=== PATIENT | female | born 1980 | race Two or more races ===

== ENCOUNTER → 2024-08-07 | Outpatient (CLI) | payer MEDICAID, SELFPAY ==
--- NOTE | 2024-08-07 13:30 | XR_ITS ---
Examination: Ultrasound soft tissue neck TECHNIQUE: Multiple high resolution grayscale sonographic images soft tissue neck INDICATIONS: Palpable lump right neck note is beginning 15 months ago, multiple submental lymph nodes, the largest 10 mm on ultrasound February 07, 2024 FINDINGS: Multiple right neck lymph nodes, the largest laterally 2.3 x 0.8 x 1.4 cm IMPRESSION: Multiple enlarged soft tissue right neck lymph nodes, recommend correlation with CT soft tissue neck post intravenous contrast
== END | disposition home or self-care (01) ==
LOC: CDIM 13:26
PROVIDERS: Referring Provider Nurse Practitioner Primary Care; Visit Provider Nurse Practitioner Primary Care
DX: R59.0 Localized enlarged lymph nodes (principal)
CPT/HCPCS: 76536

== ENCOUNTER 2024-09-14 03:04 | Emergency (ER) | payer MEDICAID, SELFPAY ==
[2024-09-14 03:05] VITALS: BMI 24.8
[2024-09-14 03:16] VITALS: BP 104/70; PULSE 103; RESP 16; TEMP 37.2; O2SAT 99
--- NOTE | 2024-09-14 03:19 | EKG_ITS ---
[facility] Test Date: 2024-09-14 Pat Name: CRISTIN JARA Department: Room: - Gender: Female Creative Recruiter: : 1980 Requested By: Silvano Lin Order Number: [id number] Reading MD: Silvano Lin Measurements Intervals [place] Rate: 80 P: 61 MI: 136 QRS: 39 QRSD: 83 T: 38 QT: 369 QTc: 426 Interpretive Statements SINUS RHYTHM No previous ECG available for comparison /store/S0/[id number].pdf
--- NOTE | 2024-09-14 03:19 | PD.EDRME ---
Rapid Medical Screening Exam RME Arrival date/time: 09/14/24 03:04 43 year old female present to Ed for c/o abd pain I have greeted and performed a focused initial assessment of this patient. A comprehensive ED assessment and evaluation of the patient, analysis of all test results, and completion of the medical decision making process will be conducted by additional ED providers. Chief Complaint: Abdominal Pain Time Seen by Provider: 09/14/24 03:14 Vital signs: Vital Signs Temperature 98.9 F 09/14/24 03:16 Pulse Rate 103 H 09/14/24 03:16 Respiratory Rate 16 09/14/24 03:16 Blood Pressure 104/70 09/14/24 03:16 Pulse Oximetry (%) 99 09/14/24 03:16 Oxygen Delivery Method Room Air 09/14/24 03:16
[2024-09-14] MEDS: MG HYD/AL HYD/SIME (Maalox Reg) SUSP 30 ML UDC PO (03:37)
[2024-09-14] MEDS: ONDANSETRON ODT 4 MG TABRAP PO (03:37)
[2024-09-14 03:40] LABS: Basophils % (Auto) 0 % (0-2.5); Eosinophils # (Auto) 0.1 Thou/mm3 (0.0-0.5); Eosinophils % (Auto) 1 % (0-10); Hemoglobin 12.6 g/dL (12.0-16.0); Immature Granulocytes % (Auto) 0 % (0-0); Immature Granulocytes Auto 0.01 Thou/mm3 (0.00-0.00); Lymphocytes # (Auto) 3.5 Thou/mm3 (1.0-4.8); Lymphocytes % (Auto) 38 % (10-50); Mean Corpuscular HGB Conc 34.1 g/dl (31.0-37.0); Mean Corpuscular Hemoglobin 29.8 pg (25.0-35.0); Mean Corpuscular Volume 88 fL (80-100); Monocytes # (Auto) 0.8 Thou/mm3 (0.0-0.8); Monocytes % (Auto) 8 % (0-12); Neutrophils # (Auto) 4.9 Thou/mm3 (1.8-7.7); Neutrophils % (Auto) 52 % (37-80); Nucleated Red Blood Cell % 0 /100 WBC (0); Platelet Count 344 Thou/mm3 (140-440); RDW Standard Deviation 40.3 fL (36.4-46.3); Red Blood Count 4.23 Miln/mm3 (4.00-5.20); White Blood Count 9.3 Thou/mm3 (3.6-11.0)
[2024-09-14 03:59] LABS: Alanine Aminotransferase 13 U/L (10-49); Albumin, Serum 4.8 gm/dL (3.5-5.0); Albumin/Globulin Ratio 1.7 (1.2-2.2); Alkaline Phosphatase 71 U/L (46-116); Anion Gap 9 (7-16); Aspartate Amino Transferase 14 U/L (0-34); BUN/Creatinine Ratio 17 Ratio (12-20); Bilirubin,Total 0.5 mg/dL (0.3-1.2); Blood Urea Nitrogen 12 mg/dL (9-23); Calcium 9.7 mg/dL (8.3-10.6); Calcium (Corrected) 9.7 mg/dL (8.5-10.1); Carbon Dioxide 27.4 mMol/L (20.0-31.0); Chloride 103 mMol/L (98-107); Creatinine (Component) 0.7 mg/dL (0.6-1.3); Estimated Creatinine Clearance 89.5 mL/min (>60); Globulin 2.9 gm/dL (2.3-3.5); Glucose 94 mg/dL (74-106); Lipase 38 U/L (12-53); Osmolality,Calculated 277 (275-295); Potassium 3.5 mMol/L (3.4-5.1); Sodium 139 mMol/L (136-145); Total Protein 7.7 gm/dL (5.7-8.2); Troponin I < 0.002 ng/mL (0.0-0.045); eGFR > 60 See Note
[2024-09-14 05:19] LABS: Collection Type, Urine Voided
[2024-09-14 05:26] LABS: Bilirubin,Urine Negative (Negative); Blood,Urine Negative (Negative); Clarity,Urine Clear (Clear/Hazy); Color,Urine Lt-Yellow (Lt Yel-Yel); Glucose, Urine Negative (Negative); Ketones,Urine Negative (Negative); Leukocyte Esterase,Urine Negative (Negative); Nitrite,Urine Negative (Negative); PH,Urine 6.5 (5.0-7.0); Protein,Urine Negative (Neg - Trace); RBC,Urine 9 /hpf (0-3); Specific Gravity,Urine 1.021 (1.001-1.035); Squamous Epithelial Cell,Urine < 1 /hpf (0-5); Urobilinogen,Urine Negative mg/dL (0.0-1.0); WBC,Urine 1 /hpf (0-5)
[2024-09-14 06:14] VITALS: BP 97/57; PULSE 72; RESP 16; TEMP 36.7; O2SAT 99
--- NOTE | 2024-09-14 07:07 | EDNOTE_ITS ---
<Statement entered by Marilu Gagnon MD - 09/14/24 07:15> As co-signing physician, I was present and available for consult prn. I concur with the plan and care as documented by the midlevel provider. ED Abdominal Pain RME/HPI General Chief Complaint: Abdominal Pain Stated complaint: abdominal pain Time seen by provider: 09/14/24 03:14 Arrival date/time: 09/14/24 03:04 43-year-old female with no known medical history presents to the emergency room with a chief complaint of generalized abdominal pain x 2 hours Source: patient Mode of arrival: ambulatory Limitations: no limitations RME / HPI RME / HPI narrative: 09/14/24 03:04 43 year old female present to Ed for c/o abd pain I have greeted and performed a focused initial assessment of this patient. A comprehensive ED assessment and evaluation of the patient, analysis of all test results, and completion of the medical decision making process will be conducted by additional ED providers. Related Data Home Medications ?Medication ?Instructions ?Recorded ?Confirmed Vitamin * 1 tab PO QDAY ##90 01/10/16 Previous Rx's ?Medication ?Instructions ?Recorded sumatriptan succinate 50 mg tablet 50 mg PO TID #14 tabs 01/09/18 (Imitrex) hydrocodone 5 mg-acetaminophen 325 1 tab PO Q6H PRN pain #10 tabs 07/31/ mg tablet ibuprofen 600 mg tablet 600 mg PO Q6H PRN fever or pain 07/31/22 #45 tabs hydrocodone 5 mg-acetaminophen 325 1 tab PO BID PRN pain #10 tabs 08/02/ mg tablet acetaminophen-caffeine 500 mg-65 1 tab PO Q6H PRN pain #30 tabs 04/11/ mg tablet (Excedrin Tension Headache) Allergies Allergy/AdvReac Type Severity Reaction Status Date / Time NKA* Allergy Uncoded 01/09/18 09:30 Review of Systems Review of Systems Systems Reviewed: All systems reviewed, normal except as documented Constitutional Constitutional: Reports system reviewed and no additional complaints, except as documented, Denies fatigue, Denies fever(s), Denies headache(s) and Denies weakness Eyes Eyes: Reports system reviewed and no additional complaints, except as documented, Denies blurry vision and Denies change in vision ENT Ears, Nose, Mouth, and Throat: Reports system reviewed and no additional complaints, except as documented, Denies otalgia, Denies headache(s), Denies nasal congestion, Denies throat swelling and Denies vertigo Cardiovascular Cardiovascular: Reports system reviewed and no additional complaints, except as documented, Denies chest pain, Denies dyspnea and Denies dyspnea on exertion Respiratory Respiratory: Reports system reviewed and no additional complaints, except as documented, Denies chest congestion, Denies cough, Denies dyspnea, Denies dyspnea on exertion and Denies wheezing Gastrointestinal Gastrointestinal: Reports abdominal pain and Reports nausea Genitourinary Genitourinary: Reports system reviewed and no additional complaints, except as documented Musculoskeletal Musculoskeletal: Reports system reviewed and no additional complaints, except as documented and Denies back pain Integumentary/Breasts Skin/Breast: Reports system reviewed and no additional complaints, except as documented and Denies wounds Neurologic Neurologic: Reports system reviewed and no additional complaints, except as documented, Denies confusion, Denies headache(s), Denies lack of coordination, Denies vertigo and Denies weakness Psychiatric Psychiatric: Reports system reviewed and no additional complaints, except as documented, Denies anxiety, Denies confusion, Denies depression, Denies paranoia, Denies suicidal ideation and Denies tactile hallucinations Endocrine Endocrine: Reports system reviewed and no additional complaints, except as documented and Denies fatigue Hematologic/Lymphatic Hematologic/Lymphatic: Reports system reviewed and no additional complaints, except as documented and Denies lymphadenopathy Allergic/Immunologic Allergic/Immunologic: Reports system reviewed and no additional complaints, except as documented, Denies throat swelling, Denies urticaria and Denies wheezing ED Exam General Limitations: Present no limitations General appearance: Present alert and in no apparent distress Head Head exam: Present atraumatic Eye Eye exam: Present normal appearance, PERRL and EOMI ENT ENT exam: Present normal exam, normal oropharynx and mucous membranes moist Neck Neck exam: Present normal inspection, full ROM and trachea midline Chest Chest inspection: Present normal inspection and symmetric chest wall rise Respiratory Respiratory exam: Present normal lung sounds bilaterally Cardiovascular Cardiovascular exam: Present regular rate, normal rhythm and normal heart sounds Abdominal Exam Abdominal exam: Present soft and normal bowel sounds; Absent distention, tenderness, guarding, rebound, rigidity, Lu's sign, Rovsing's sign or tenderness at McBurney's Point Extremities Exam Extremities exam: Present normal inspection and full ROM Back Exam Back exam: Present normal inspection and full ROM Neurological Exam Neurological exam: Present alert, oriented X3 and CN II-XII intact Psychiatric Psychiatric exam: Present normal affect and normal mood Skin Skin exam: Present warm, dry, intact and normal color Course Quality Measures none Orders Category Date Time Status EKG (ED ONLY) *Do not use* NOW Care 09/14/24 03:19 Completed EKG (ED Only) Stat Exams 09/14/24 03:19 Draft CBC Stat Lab 09/14/24 03:26 Completed CMP [Comprehensive Metabolic Panel] Stat Lab 09/14/24 03:26 Completed Lipase Stat Lab 09/14/24 03:26 Completed Troponin I Stat Lab 09/14/24 03:26 Completed UA [Urinalysis] Stat Lab 09/14/24 04:58 Completed Ondansetron Odt [Zofran Odt] Med 09/14/24 03:19 Discontinued 4 mg PO X1 ONE mg Hyd/Al Hyd/Jelly Susp [Maalox Susp] Med 09/14/24 03:19 Discontinued 30 ml PO X1 ONE Vital Signs Vital signs: Vital Signs Temperature 98.9 F 09/14/24 03:16 Pulse Rate 103 H 09/14/24 03:16 Respiratory Rate 16 09/14/24 03:16 Blood Pressure 104/70 09/14/24 03:16 Pulse Oximetry (%) 99 09/14/24 03:16 Oxygen Delivery Method Room Air 09/14/24 03:16 O2 saturation 99% within normal limits Abdominal Pain MDM MDM Narrative MDM Narrative:: 43-year-old female with no known medical history presents to the emergency room with a chief complaint of generalized abdominal pain x 2 hours clinically the patient appears nontoxic and in no apparent distress. During my reevaluation the patient is not complaining of any abdominal pain anymore states her nausea is completely gone. CBC and CMP were negative for any acute findings. There is no leukocytosis. Urinalysis was negative for any acute findings however there is some blood in the urine. Patient denies being on her menses and patient was educated to follow-up with her primary care provider regarding this issue. Patient was educated to follow-up with primary care provider and return to the emergency room for any evidence of worsening signs or symptoms Patient data External records reviewed:: [facility] previous records Clinical information provided by:: patient Social determinants that could affect healthcare access:: none Patient has the following chronic illnesses:: No chronic illness How is presenting disease/condition affected by chronic disease/condition?: no chronic disease Evaluation data The following diagnostics were reviewed and interpreted by me:: lab results and radiology exam(s) Lab and/or radiology exams considered but not ordered:: Labs and radiology exams considered and ordered Interpretation Summary: N/A Medications / Prescriptions Medications or Prescriptions considered but not ordered:: Medication given Medication administrations:: Medication Administration History Discontinued Medications Al Hydrox/Mg Hydrox/Simethicone (Mg Hyd/Al Hyd/Jelly (Maalox Reg) Susp 30 Ml Udc) 30 ml PO X1 ONE Stop: 09/14/24 03:20 Last Admin: 09/14/24 03:37 Dose: 30 ml Documented By: EF Ondansetron HCl (Ondansetron Odt 4 Mg Tabrap) 4 mg PO X1 ONE; Protocol Stop: 09/14/24 03:20 Last Admin: 09/14/24 03:37 Dose: 4 mg Documented By: EF Medication given Consultations Consultation(s) initiated? (list below): No Diagnosis Differential diagnosis abdominal pain: abdominal pain, acute appendicitis, const ipation and gastroenteritis Most likely diagnosis given after review of the tests above:: Gastroenteritis Admission Indicated Admission indicated?: not indicated Admission Request Was there a request for admission?: No Disposition Plan Disposition Plan: Discharge Discharge Attestation Discharge Attestation: The patient and all family members were given an opportunity to ask questions and understood the discharge instructions. Discharge instructions specifically effects, indications for sooner follow up or return to the emergency department, and the expected course of current diagnosis. Patient condition: Stable Discharge Plan Plan Patient Disposition: HOME (Self Care) Disposition Comment: Stable Prescriptions/Referrals Prescriptions/Med Rec: No Action Vitamin * 1 EACH tablet 1 tab PO QDAY Qty: 90 sumatriptan succinate [Imitrex] 50 mg tablet 50 mg PO TID Qty: 14 0RF Rx Instructions: until response; not to exceed 4 doses in a 24 hour period hydrocodone-acetaminophen 5-325 mg tablet 1 tab PO Q6H MDD 4 PRN (Reason: pain) Qty: 10 0RF ibuprofen 600 mg tablet 600 mg PO Q6H PRN (Reason: fever or pain) Qty: 45 0RF hydrocodone-acetaminophen 5-325 mg tablet 1 tab PO BID MDD 10 PRN (Reason: pain) Qty: 10 0RF Excedrin Tension Headache 500-65 mg tablet 1 tab PO Q6H PRN (Reason: pain) Qty: 30 0RF Referrals: Jessie Izaguirre (ARIACHL), AIRCRAFT SALES REPRESENTATIVE [Primary Care Provider] - In 1 week Problem List Clinical Impression: Gastroenteritis Patient/Caregiver Discharge Instructions Education Materials: ED Gastroenteritis, Noninfectious Additional Instructions: Jania un seguimiento con romero proveedor de atenci?n primaria en las pr?ximas 24 a 48 horas. Si muestra cualquier evidencia de signos o s?ntomas que empeoran, regrese a la annie de emergencias de inmediato. Print Language: [place] Stand Alone Forms: Em Award Info., Patient Portal Info Letter PA/AIRCRAFT SALES REPRESENTATIVE Supervising Physician PA/AIRCRAFT SALES REPRESENTATIVE Supervising Physician: Dr. GAGNON
== END 2024-09-14 07:12 | disposition home or self-care (01) ==
PROVIDERS: Physician Assistant; Emergency Provider Emergency Medicine; PCP Nurse Practitioner Primary Care
DX: K52.9 Noninfective gastroenteritis and colitis, unspecified (principal)
CPT/HCPCS: 36415; 80053; 81001; 83690; 84484; 85025; 93005; 99283; Q0162; A9270

== ENCOUNTER → 2024-11-23 | Outpatient (CLI) | payer MEDICAID, SELFPAY ==
--- NOTE | 2024-11-23 11:45 | XR_ITS ---
Examination: Diagnostic digital mammography, bilateral Computer aided detection 3-D breast Tomosynthesis, bilateral Date and time of exam: 11/23/2024, 11:32 AM Comparisons: February 24, 2024, April Indications:Follow-up probably benign asymmetries. Technique: Nonmagnified MLO, CC views of the breasts to been obtained, reconstructed from 3-D Tomosynthesis images. R2 computer aided detection program utilized for evaluation of suspicious masses and/or abnormal calcifications. 3-D Tomosynthesis images obtained. Findings: The breasts are heterogeneously dense, which may obscure small masses. No evidence of abnormal masses or suspicious calcifications. Previously described asymmetries persist but appears stable and benign. Impression: BI-RADS category 2: Benign findings Recommend 1 year follow-up mammogram
== END | disposition home or self-care (01) ==
LOC: CDIM 11:25
PROVIDERS: Referring Provider Nurse Practitioner Primary Care; Visit Provider Nurse Practitioner Primary Care
DX: R92.323 Mammographic fibroglandular density, bilateral breasts (principal)
CPT/HCPCS: 77062; 77066; G0279

== ENCOUNTER → 2024-12-05 | Outpatient (CLI) | payer MEDICAID, SELFPAY ==
--- NOTE | 2024-12-05 10:30 | XR_ITS ---
Examination: Abdomen sonogram, complete Date and time of exam: December 05, 2024 1046 hours INDICATIONS: History flank pain months, kidney stones, 9 mm midpole nonobstructing left renal calculus on abdomen sonogram March 14, 2024. Technique: Multiple real-time grayscale transabdominal sonographic images of the abdomen have been obtained. Findings: Normal gallbladder Normal common bile duct 0.3 cm Pancreatic head 2.7 cm Aorta not enlarged Liver 14.3 cm fatty infiltration irregular contour Normal hepatopedal portal venous flow Patent IVC Right kidney 10.8 cm cortex 1.5 cm Left kidney 10.9 cm cortex 1.9 cm Mild bilateral renal parenchymal scar formation 6 mm left renal calculus No hydronephrosis Spleen 8.0 cm IMPRESSION: Normal gallbladder Mild bilateral renal parenchymal scar formation 6 mm nonobstructing left renal calculus
== END | disposition home or self-care (01) ==
PROVIDERS: PCP Nurse Practitioner Primary Care; Referring Provider Nurse Practitioner Primary Care; Visit Provider Nurse Practitioner Primary Care
DX: N20.0 Calculus of kidney (principal); N28.89 Other specified disorders of kidney and ureter
CPT/HCPCS: 76700

== ENCOUNTER 2025-01-17 17:50 | Emergency (ER) | payer MEDICAID, SELFPAY ==
[2025-01-17 18:22] VITALS: BP 133/75; PULSE 89; RESP 18; TEMP 36.7; O2SAT 99; BMI 25.7
--- NOTE | 2025-01-17 18:31 | XR_ITS ---
Examination: Lumbar spine 3 views TECHNIQUE: AP lateral, lateral lower lumbar spine 3 views Examination time: January 17, 2025 1940 hours INDICATIONS: Low back pain radiating to left leg since yesterday FINDINGS: Satisfactory alignment lumbar vertebral bodies No lumbar fracture Mild disc narrowing L3-L4 No spondylolisthesis Impression: No lumbar fracture. Mild disc narrowing L3-L4
--- NOTE | 2025-01-17 18:31 | PD.EDBACK ---
ED Back Injury Pain RME/HPI General Chief Complaint: Back Pain/Injury Stated Complaint: RIGHT BACK PAIN X 2 DAYS. Time Seen by Provider: 01/17/25 18:23 Arrival date/time: 01/17/25 17:50 Limitations: no limitations RME / HPI RME / HPI Narrative: 44-year-old female presents to urgent care with complaint of right flank pain that began yesterday and was worse this morning. Patient tells me OTC medication Tylenol and ibuprofen do not help. Denies being . Denies seeing any blood in her urine. Related Data Home Medications ?Medication ?Instructions ?Recorded ?Confirmed Vitamin * 1 tab PO QDAY ##90 01/10/16 Previous Rx's ?Medication ?Instructions ?Recorded sumatriptan succinate 50 mg tablet 50 mg PO TID #14 tabs 01/09/18 (Imitrex) hydrocodone 5 mg-acetaminophen 325 1 tab PO Q6H PRN pain #10 tabs 07/31/ mg tablet ibuprofen 600 mg tablet 600 mg PO Q6H PRN fever or pain 07/31/22 #45 tabs hydrocodone 5 mg-acetaminophen 325 1 tab PO BID PRN pain #10 tabs 08/02/ mg tablet acetaminophen-caffeine 500 mg-65 1 tab PO Q6H PRN pain #30 tabs 04/11/ mg tablet (Excedrin Tension Headache) ibuprofen 800 mg tablet 800 mg PO Q8H PRN pain #30 tabs 01/18/25 Allergies Allergy/AdvReac Type Severity Reaction Status Date / Time NKA* Allergy Uncoded 01/09/18 09:30 Review of Systems Review of Systems Systems Reviewed: All systems reviewed, normal except as documented Genitourinary Genitourinary: Reports system reviewed and no additional complaints, except as documented Musculoskeletal Musculoskeletal: Reports back pain Neurologic Neurologic: Reports system reviewed and no additional complaints, except as documented ED Exam General Limitations: Present no limitations General appearance: Present alert Eye Eye exam: Present normal appearance ENT ENT exam: Present normal exam Neck Neck exam: Present normal inspection Chest Chest inspection: Present normal inspection Respiratory Respiratory exam: Present normal lung sounds bilaterally Abdominal Exam Abdominal exam: Present soft (The abdomen is soft nontender without any apparent masses, there is no guarding, negative for rebound tenderness.) Extremities Exam Extremities exam: Present normal inspection Back Exam Back exam: Present normal inspection (Straight leg raises are negative for radiculopathy and low back pain.) Neurological Exam Neurological exam: Present alert and oriented X3 Skin Skin exam: Present warm, dry, intact and normal color Course Course Course Narrative: Patient will have a UA and the hCG she was also have a lumbar x-ray 3 view. And Toradol 30 mg IM. Quality Measures none Orders Category Date Time Status XR lumbar spine 2-3V Stat Exams 01/17/25 18:31 Completed HCG Qualitative,Urine Stat Lab 01/17/25 18:56 Completed UA [Urinalysis] Stat Lab 01/17/25 18:56 Completed Ketorolac Inj [Toradol Inj] Med 01/17/25 18:31 Discontinued 30 mg IM X1 ONE Vital Signs Vital signs: Vital Signs Temperature 98.1 F 01/17/25 18:22 Pulse Rate 89 01/17/25 18:22 Respiratory Rate 18 01/17/25 18:22 Blood Pressure 133/75 H 01/17/25 18:22 Pulse Oximetry (%) 99 01/17/25 18:22 Oxygen Delivery Method Room Air 01/17/25 18:22 Pulse ox is 99% room air Back Pain / Injury MDM Narrative MDM Narrative:: Labs returned normal patient will have ibuprofen sent to the pharmacy of her choice and she is to follow-up with primary care physician in 1 week, sooner if worse. Patient data External records reviewed:: Other (specify) Clinical information provided by:: none Social determinants that could affect healthcare access:: none Patient has the following chronic illnesses:: N/A How is presenting disease/condition affected by chronic disease/condition?: no chronic disease Evaluation data The following diagnostics were reviewed and interpreted by me:: other (specify) Lab and/or radiology exams considered but not ordered:: N/A Interpretation Summary: N/A Medications / Prescriptions Medications or Prescriptions considered but not ordered:: N/A Medication administrations:: Medication Administration History Discontinued Medications Ketorolac Tromethamine (Ketorolac Inj 60 Mg/2 Ml Vial) 30 mg IM X1 ONE Stop: 01/17/25 18:32 Last Admin: 01/17/25 19:05 Dose: 30 mg Documented By: OA Given Consultations Consultation(s) initiated? (list below): No Diagnosis Differential diagnosis back pain/injury: lumbar radiculopathy, sciatica, strain of lumbar region, renal colic and pyelonephritis Most likely diagnosis given after review of the tests above:: N/A Admission Indicated Admission indicated?: not indicated Admission Request Was there a request for admission?: No Disposition Plan Disposition Plan: Discharge Discharge Attestation Discharge Attestation: The patient and all family members were given an opportunity to ask questions and understood the discharge instructions. Discharge instructions specifically effects, indications for sooner follow up or return to the emergency department, and the expected course of current diagnosis. Patient condition: Stable Discharge Plan Plan Patient Disposition: HOME (Self Care) Discharge Disposition comment: Patient discharged in no apparent distress Prescriptions/Referrals Prescriptions/Med Rec: New ibuprofen 800 mg tablet 800 mg PO Q8H PRN (Reason: pain) Qty: 30 0RF No Action Vitamin * 1 EACH tablet 1 tab PO QDAY Qty: 90 sumatriptan succinate [Imitrex] 50 mg tablet 50 mg PO TID Qty: 14 0RF Rx Instructions: until response; not to exceed 4 doses in a 24 hour period hydrocodone-acetaminophen 5-325 mg tablet 1 tab PO Q6H MDD 4 PRN (Reason: pain) Qty: 10 0RF ibuprofen 600 mg tablet 600 mg PO Q6H PRN (Reason: fever or pain) Qty: 45 0RF hydrocodone-acetaminophen 5-325 mg tablet 1 tab PO BID MDD 10 PRN (Reason: pain) Qty: 10 0RF Excedrin Tension Headache 500-65 mg tablet 1 tab PO Q6H PRN (Reason: pain) Qty: 30 0RF Referrals: Jessie Izaguirre FN (ARIACHL)P [Primary Care Provider] - In 1 week Problem List Clinical Impression: Back pain Patient/Caregiver Discharge Instructions Education Materials: Back Basics: A Healthy Spine Print Language: [place] Stand Alone Forms: Em Award Info., Patient Portal Info Letter PA/WORKFORCE DEVELOPMENT VICE PRESIDENT Supervising Physician DONNA/WORKFORCE DEVELOPMENT VICE PRESIDENT Supervising Physician: nona
[2025-01-17 19:02] LABS: Collection Type, Urine Clean Catch
[2025-01-17] MEDS: KETOROLAC INJ 60 MG/2 ML VIAL 30 MG IM (19:05)
[2025-01-17 19:20] LABS: Bilirubin,Urine Negative (Negative); Blood,Urine Negative (Negative); Clarity,Urine Clear (Clear/Hazy); Color,Urine Lt-Yellow (Lt Yel-Yel); Glucose, Urine Negative (Negative); Ketones,Urine Negative (Negative); Leukocyte Esterase,Urine Negative (Negative); Nitrite,Urine Negative (Negative); PH,Urine 6.5 (5.0-7.0); Protein,Urine Negative (Neg - Trace); RBC,Urine 1 /hpf (0-3); Specific Gravity,Urine 1.026 (1.001-1.035); Squamous Epithelial Cell,Urine 1 /hpf (0-5); Urobilinogen,Urine Negative mg/dL (0.0-1.0); WBC,Urine 1 /hpf (0-5)
[2025-01-17 19:31] LABS: HCG Qualitative,Urine Negative
[2025-01-17 21:54] VITALS: BP 116/73; PULSE 72; RESP 16; TEMP 36.7; O2SAT 99
== END 2025-01-18 01:24 | disposition home or self-care (01) ==
PROVIDERS: Physician Assistant; Emergency Provider Emergency Medicine; PCP Nurse Practitioner Primary Care
DX: M54.50 Low back pain, unspecified (principal)
CPT/HCPCS: 72100; 81001; 81025; 96372; 99283; J1885